=== PATIENT | male | born 1995 | race African-American/Black ===

== ENCOUNTER 2020-06-08 15:27 | Emergency (ER) | payer OTHER ==
[2020-06-08 15:39] VITALS: BP 130/68; PULSE 90; RESP 18; TEMP 98.7
[2020-06-08] MEDS ORDERED: IBUPROFEN 600 MG STARTER PACK 4 TAB BTL PO STA (15:56)
--- NOTE | 2020-06-08 16:02 | ED ---
General Adult HPI - General Chief complaint: ENT Stated complaint: Throat issues Time Seen by Provider: 06/08/20 15:45 Source: patient, RN notes reviewed Mode of arrival: ambulatory Limitations: no limitations - History of Present Illness Initial comments: Patient is a pleasant 24-year-old male presenting to the emergency department with sore throat. Patient states he has had mild symptoms for several weeks however worse the past day or 2. Patient does have sore throat that discomfort increases with swallowing. Patient also has swelling of his left anterior cervical region and points to a lymph node. No cough. No rhinorrhea or other upper a story symptoms. Patient does have chills and subjective fever. - Related Data Previous Rx's Medication Instructions Recorded Cephalexin [Keflex] 500 mg PO QID #40 cap 06/08/20 Allergies Allergy/AdvReac Type Severity Reaction Status Date / Time No Known Allergies Allergy Verified 06/08/20 15:36 Review of Systems ROS Statement: Those systems with pertinent positive or pertinent negative responses have been documented in the HPI. ROS Other: All systems not noted in ROS Statement are negative. Constitutional: Reports: as per HPI, fever, chills Eyes: Denies: eye pain ENT: Reports: throat pain. Denies: ear pain Respiratory: Denies: cough Cardiovascular: Denies: chest pain Endocrine: Denies: fatigue Gastrointestinal: Denies: abdominal pain Genitourinary: Denies: urgency Musculoskeletal: Denies: back pain Skin: Denies: rash Neurological: Denies: weakness Psychiatric: Denies: depression Past Medical History Past Medical History: No Reported History History of Any Multi-Drug Resistant Organisms: None Reported Past Surgical History: No Surgical Hx Reported Past Psychological History: No Psychological Hx Reported Smoking Status: Current every day smoker Past Alcohol Use History: Occasional Past Drug Use History: Marijuana General Exam Limitations: no limitations General appearance: alert, in no apparent distress Head exam: Present: normocephalic Eye exam: Present: normal appearance, PERRL ENT exam: Present: other (Mild pharyngeal erythema. No signs of abscess. No trismus) Neck exam: Present: other (Tender swollen left anterior cervical lymph node) Respiratory exam: Present: normal lung sounds bilaterally Cardiovascular Exam: Present: regular rate, normal rhythm GI/Abdominal exam: Present: soft. Absent: tenderness Extremities exam: Present: normal inspection Neurological exam: Present: alert Psychiatric exam: Present: normal affect, normal mood Skin exam: Present: normal color Course Vital Signs 06/08/20 15:37 Temperature 98.7 F Pulse Rate 90 Respiratory 18 Rate Blood Pressure 130/68 O2 Sat by Pulse 99 Oximetry Disposition Clinical Impression: Pharyngitis Disposition: HOME SELF-CARE Condition: Stable Instructions (If sedation given, give patient instructions): Pharyngitis (ED) Additional Instructions: Please follow-up with primary care physician in the next couple days for recheck. Return for any difficulty breathing, increased swelling, uncontrolled fevers, worsening symptoms, not tolerating liquids, or any other concerns. [id number] Motrin as needed. [id number]-pcainld vitamin C. Salt water gargle. Prescription has been sent to [facility] Prescriptions: Cephalexin [Keflex] 500 mg PO QID #40 cap Is patient prescribed a controlled substance at d/c from ED?: No Referrals: Shiva Bustos [STAFF PHYSICIAN] - 1-2 days Time of Disposition: 16:01
== END 2020-06-08 16:06 | disposition home or self-care (01) ==
LOC: EC 15:27
DX: J02.9 Acute pharyngitis, unspecified (principal); F17.200 Nicotine dependence, unspecified, uncomplicated
CPT/HCPCS: 99283